=== PATIENT | male | born 1975 | race Caucasian/White ===

== ENCOUNTER 2020-04-12 22:01 | Emergency (ER) | payer BC, MEDICARE ==
[~2020-04-12] VITALS: Ht 190.5 cm; Wt 84.8 kg
--- NOTE | 2020-04-12 22:09 | NUR ---
: DESTINEY [phone]
--- NOTE | 2020-04-12 22:25 | NUR ---
PT BIBRA FROM HOME C/O NECK PAIN. PT RECENTLY DISCHARGED FROM [facility] X2 DAYS AGO S/P CERVICAL LAMINECTOMY X4 DAYS AGO. PT ARRIVED TO [facility] ER WITH HARD CERVIAL COLLAR. 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 PT AAOX4. RESPIRATIONS EVEN AND UNLABORED. SKIN WARM AND INTACT. VITAL SIGNS STABLE. NO ACUTE DISTRESS NOTED AT THIS TIME. WILL CONTINUE TO MONITOR
[2020-04-12] MEDS ORDERED: MORPHINE SULFATE INJ 2 MG/ML DISP.SYRIN IV ONE (23:30)
[2020-04-12] MEDS ORDERED: KETOROLAC TROMETHAMINE INJ 30 MG/ML VIAL ONE (23:30)
[2020-04-12] MEDS ORDERED: MORPHINE SULFATE INJ 4 MG/ML DISP.SYRIN ONE (23:38)
[2020-04-12 23:39] LABS: BASOPHILS # (AUTO) 0.1 /CMM (0.0-0.2); BASOPHILS % (AUTO) 1.4 % (0.0-2.0); EOSINOPHILS % (AUTO) 1.6 % (0.0-6.0); HEMATOCRIT 42 % (39-51); HEMOGLOBIN 14.4 g/dL (13.5-17.5); LYMPHOCYTES # (AUTO) 2.2 /CMM (0.8-4.8); LYMPHOCYTES % (AUTO) 21.2 % (20.0-44.0); MEAN CORPUSCULAR HGB CONC 34 g/dl (31.0-36.0); MEAN CORPUSCULAR VOLUME 97 fL (80-96); MONOCYTES # (AUTO) 1.1 /CMM (0.1-1.30); MONOCYTES % (AUTO) 10.4 % (2.0-12.0); NEUTROPHILS # (AUTO) 6.7 /CMM (1.8-8.9); NEUTROPHILS % (AUTO) 65.4 % (43.0-81.0); PLATELET COUNT (AUTO) 248 /CMM (150-450); RED BLOOD CELL COUNT(AUTO) 4.38 MIL/uL (4.5-6.0); WHITE BLOOD COUNT (AUTO) 10.2 K/uL (4.3-11.0)
[2020-04-12 23:50] LABS: CALCIUM, SERUM 8.8 mg/dL (8.5-10.1); CREATININE 1.1 mg/dL (0.6-1.3); POTASSIUM 4.1 mmol/L (3.5-5.1)
[2020-04-12] MEDS ORDERED: CT SWABBABLE VALVE TRANS SET 1 EA INFUS.SET MC ONE (23:56)
[2020-04-12] MEDS ORDERED: IOHEXOL-300 100 ML VIAL IV ONE (23:56)
[2020-04-12] MEDS ORDERED: IV NS 0.9% 250 ML IV ONE (23:56)
--- NOTE | 2020-04-13 00:17 | NUR ---
PT BROUGHT BY RADIOLOGY TO CT
--- NOTE | 2020-04-13 00:20 | NUR ---
Bhaskar saleem in [facility] - 04/13/20 at 0031 by RAMILA PT RETURNED FROM CT
--- NOTE | 2020-04-13 00:28 | NUR ---
PT RETURNED FROM CT
[2020-04-13] MEDS ORDERED: MORPHINE SULFATE INJ 4 MG/ML DISP.SYRIN ONE (01:41)
[2020-04-13] MEDS ORDERED: MORPHINE SULFATE INJ 2 MG/ML DISP.SYRIN IV ONE (02:00)
--- NOTE | 2020-04-13 02:16 | NUR ---
Patient discharged to home in stable condition. Written and verbal after care instructions given. Patient verbalizes understanding of instruction. Pt instructed not to drive, pt verbalized understanding and will be picked up by . Pt wheeled to car via wheelchair in stable condition
[2020-04-13 02:17] VITALS: BP 146/95
== END 2020-04-13 02:17 | disposition home or self-care (01) ==
LOC: ER 22:04
DX: M54.2 Cervicalgia (principal); Z98.890 Other specified postprocedural states; Z88.1 Allergy status to other antibiotic agents; Z88.6 Allergy status to analgesic agent
CPT/HCPCS: 36415; 70491; 80048; 85025; 96374; 96376; 99285; J2270 ×2; J7050; Q9967; J1885